=== PATIENT | male | born 1995 | race Asian ===

== ENCOUNTER 2017-05-29 17:21 | Emergency (ER) ==
[~2017-05-29] VITALS: Ht 180.3 cm; Wt 91.1 kg
[2017-05-29 17:38] VITALS: BP 118/56; PULSE 128; TEMP 37.8; O2SAT 94; Ht 180.3 cm; Wt 91.1 kg
== END 2017-05-29 18:54 | disposition left against medical advice (07) ==
LOC: C.EDB 17:22
DX: R50.9 Fever, unspecified (principal)

== ENCOUNTER 2017-06-12 09:50 | Emergency (ER) | payer OTHER ==
[~2017-06-12] VITALS: Ht 180.3 cm; Wt 88.3 kg
[2017-06-12 09:54] VITALS: TEMP 36.5; Ht 180.3 cm; Wt 88.3 kg
[2017-06-12] MEDS ORDERED: ACETAMINOPHEN 500 MG TAB PO STA (10:51)
[2017-06-12] MEDS ORDERED: MoRPHine SULFATE 4 MG/ML 1 ML CARP\\VIAL IV STA (10:51)
[2017-06-12] MEDS ORDERED: KETOROLAC TROMETHAMINE 30 MG/ML VIAL IV STA (10:51)
[2017-06-12] MEDS ORDERED: ONDANSETRON INJ 2 MG/ML 2 ML VIAL IV STA (10:51)
[2017-06-12] MEDS ORDERED: SODIUM CHLORIDE 0.9% 1000ML 1,000 ML IV STA (10:51)
[2017-06-12 10:53] LABS: HEMATOCRIT 48.7 % (42-52); MEAN CORPUSCULAR HEMOGLOBIN 30.5 pg (25-34); MEAN CORPUSCULAR HGB CONC 35.9 g/dl (32-36); MEAN PLATELET VOLUME 9.8 fL (7.4-10.4); PLATELET COUNT 315 K/uL (130-400); RED BLOOD COUNT 5.73 M/uL (4.7-6.1)
[2017-06-12] MEDS ORDERED: [UNRECOGNIZED DRUG - REMARK] PO (10:56)
--- NOTE | 2017-06-12 11:05 | EMERGENCY ROOM VISIT NOTE ---
History Report prepared by Carl: Sukhi Ball Under the Supervision of: Dr. Anmol Navas M.D. First contact with patient: 10:15 Chief Complaint: FLANK PAIN Stated Complaint: RT SIDE PAIN History of Present Illness The patient is a 22 year old male with a past medical history of hyperthyroidism and takes methimazole who presents to the ED with a cc of waxing and waning sharp right flank pain beginning this morning. Positive nausea. Negative history of surgery or kidney stones, vomiting, recent traumas, penis pain, scrotum pain, testicular pain, hematuria, burning with urination, alcohol use, tobacco use, or drug use. He had a normal BM yesterday and feels like he is building up gas. Source of History: patient Onset: this morning Position: other (right flank) Quality: sharp Timing: waxes/wanes Associated Symptoms: + nausea, No vomiting, No urinary symptoms Review of Systems See HPI for pertinent positives and negatives. A total of ten systems were reviewed and were otherwise negative. Past Medical & Surgical Medical Problems: (1) Hyperthyroidism Social History Smoking Status: Never Smoker Marital Status: single Housing Status: lives with roommate Occupation Status: [employer] student Current/Historical Medications Scheduled Ondasetron Odt (Zofran Odt), 4 MG SL Q6H Tamsulosin Hcl (Flomax), 0.4 MG PO Before bed [Hypothyroid Drug], 5 MG PO DAILY Scheduled PRN Tramadol (Ultram), 50 MG PO Q4H PRN for Pain Allergies Coded Allergies: POLLEN (Unverified Allergy, Mild, SHORTNESS OF BREATH, 06/12/17) Physical Exam Vital Signs Date Time Temp Pulse Resp B/P (MAP) Pulse Ox O2 Delivery O2 Flow Rate FiO2 06/12/17 13:30 74 16 137/84 95 Room Air 06/12/17 12:05 81 16 137/78 96 Room Air 06/12/17 11:07 65 17 149/82 96 Room Air 06/12/17 09:54 36.5 83 18 150/79 96 Room Air Physical Exam GENERAL: Awake, alert, uncomfortable-appearing, in pain HENT: Normocephalic, atraumatic. EYES: Normal conjunctiva. Sclera non-icteric. NECK: Supple. No nuchal rigidity. FROM. RESPIRATORY: CTAB, no rhonchi, wheezing, crackles CARDIAC: RRR, no MRG ABDOMEN: No RLQ TTP. Soft, NTND, BS+ MSK: Right flank pain, no true CVA TTP. Negative obturator and psoas. No chest wall TTP, no LE edema : Uncircumcised, no testicular, scrotal, or penile swelling. No TTP NEURO: GCS 15, CN 2-12 intact, moves all 4s on command SKIN: No rash or jaundice noted. Medical Decision & Procedures ER Provider Diagnostic Interpretation: Radiology results as stated below per my review and radiologist interpretation: EXAMINATION: RENAL ULTRASOUND CLINICAL HISTORY: R flank pain COMPARISON STUDY: None FINDINGS: The right kidney measures 11.8 cm. The left kidney measures 12.3 cm. There is no evidence of hydronephrosis. There are no renal masses. The bladder was empty at the time of scanning. Neither ureteral jet could be demonstrated. There is increased hepatic echogenicity, nonspecific finding most often seen in hepatic steatosis. IMPRESSION : 1. No renal masses identified. No evidence of hydronephrosis 2. Suspected hepatic steatosis Electronically signed by: Josué Lyons M.D. 06/12/2017 11:59 AM Dictated Date/Time: 06/12/2017 11:58 AM Laboratory Results 06/12/17 10:25 06/12/17 10:25 Test 06/12/17 10:25 06/12/17 11:00 Red Blood Count 5.73 M/uL (4.7-6.1) Mean Corpuscular Volume 85.0 fL (80-100) Mean Corpuscular Hemoglobin 30.5 pg (25-34) Mean Corpuscular Hemoglobin Concent 35.9 g/dl (32-36) RDW Standard Deviation 38.8 fL (36.4-46.3) RDW Coefficient of Variation 12.6 % (11.5-14.5) Mean Platelet Volume 9.8 fL (7.4-10.4) Anion Gap 6.0 mmol/L (3-11) Est Creatinine Clear Calc Drug Dose 136.7 ml/min Estimated GFR () 139.1 Estimated GFR (Non- 120.0 BUN/Creatinine Ratio 16.2 (10-20) Calcium Level 9.9 mg/dl (8.5-10.1) Total Bilirubin 0.7 mg/dl (0.2-1) Direct Bilirubin 0.2 mg/dl (0-0.2) Aspartate Amino Transf (AST/SGOT) 25 U/L (15-37) Alanine Aminotransferase (ALT/SGPT) 65 U/L (12-78) Alkaline Phosphatase 103 U/L (45-117) Total Protein 8.5 gm/dl (6.4-8.2) Albumin 4.6 gm/dl (3.4-5.0) Lipase 84 U/L (73-393) Urine Color DK YELLOW Urine Appearance CLEAR (CLEAR) Urine pH 7.5 (4.5-7.5) Urine Specific [place] 1.027 (1.000-1.030) Urine Protein NEG (NEG) Urine Glucose (UA) NEG (NEG) Urine Ketones NEG (NEG) Urine Occult Blood 2+ (NEG) Urine Nitrite NEG (NEG) Urine Bilirubin NEG (NEG) Urine Urobilinogen NEG (NEG) Urine Leukocyte Esterase NEG (NEG) Urine WBC (Auto) 1-5 /hpf (0-5) Urine RBC (Auto) >30 /hpf (0-4) Urine Hyaline Casts (Auto) 1-5 /lpf (0-5) Urine Epithelial Cells (Auto) 5-10 /lpf (0-5) Urine Bacteria (Auto) NEG (NEG) Laboratory results reviewed by me Medications Administered Medications (Trade) Dose Ordered Sig/Chris Route Start Time Stop Time Status Last Admin Dose Admin Ketorolac Tromethamine (Toradol Inj) 30 mg NOW STAT IV 06/12/17 10:51 06/12/17 10:52 DC 06/12/17 11:03 30 MG Morphine Sulfate (MoRPHine SULFATE INJ) 4 mg NOW STAT IV 06/12/17 10:51 06/12/17 10:52 DC 06/12/17 11:04 4 MG Acetaminophen (Tylenol Tab) 1,000 mg NOW STAT PO 06/12/17 10:51 06/12/17 10:52 DC 06/12/17 11:01 1,000 MG Ondansetron HCl (Zofran Inj) 4 mg NOW STAT IV 06/12/17 10:51 06/12/17 10:52 DC 06/12/17 11:02 4 MG Sodium Chloride 1,000 ml @ 999 mls/hr Q1H1M STAT IV 06/12/17 10:51 06/12/17 11:51 DC 06/12/17 11:00 999 MLS/HR Acetaminophen/ Hydrocodone Bitart (Peggs 10/325 Tab) 1 tab ONE STAT PO 06/12/17 12:58 06/12/17 12:59 DC 06/12/17 13:29 1 TAB Ondansetron HCl (Zofran Odt) 4 mg ONE STAT PO 06/12/17 13:10 06/12/17 13:11 DC 06/12/17 13:29 4 MG ED Course 1032: The patient was evaluated in room C8. A complete history and physical exam was performed. 1210: I reevaluated the patient, and he is feeling better. I discussed the possibility of early onset appendicitis. 1305: I reevaluated the patient, and he still had some pain, but it was tolerable . Discussed results and discharge instructions: He verbalized understanding and agreement. The patient is ready for discharge. Medical Decision The patient is a 22 year old male with a past medical history of hyperthyroidism and takes methimazole who presents to the ED with a cc of waxing and waning sharp right flank pain beginning this morning. Positive nausea. Negative history of surgery or kidney stones, vomiting, recent traumas, penis pain, scrotum pain, testicular pain, hematuria, burning with urination, alcohol use, tobacco use, or drug use. Differential diagnosis: Etiologies such as renal colic, appendicitis, diverticulitis, mesenteric ischemia, aortic pathology, infections, inflammatory bowel disease, PUD, biliary pathology, UTI, as well as others were entertained. Patient was seen and evaluated at the bedside. Patient was uncomfortable. Patient had no right lower quadrant pain and had a negative obturator's and psoas. Patient had blood work as well as an ultrasound and urine were sent. Patient's pain did improve and was more tolerable. Patient had had recent bowel movement denied any gross hematuria or blood in stool. Patient had no prior history of abdominal surgeries. Patient was given by mouth pain medications. Patient did have occult blood and rbc's in his urine. Patient had an ultrasound did not show anything hydronephrosis. Patient had normal kidney function. Patient's white count was normal. I spoke with the patient stated that while in ultrasound will not be definitive for locating a kidney stone given his symptoms and +blood in UA that this was possible. He was told this could be early onset of symptoms represent appendicitis however he has no right lower quadrant pain and does not have a positive obturator psoas sign. Furthermore, WBC is WNL. Patient was told that if his symptoms don't improve in the next 24-48 hours or develops any fever or chills or persistent vomiting to return for further evaluation. Patient was given d/c, return precautions. Patient safely discharged home. Medication Reconcilliation Current Medication List: was personally reviewed by me Blood Pressure Screening Patient's blood pressure: Elevated blood pressure Blood pressure disposition: Elevated BP felt to be situational Impression Primary Impression: Right flank pain Additional Impression: Kidney stone Scribe Attestation The scribe's documentation has been prepared under my direction and personally reviewed by me in its entirety. I confirm that the note above accurately reflects all work, treatment, procedures, and medical decision making performed by me. Departure Information Dispostion Home / Self-Care Prescriptions Tamsulosin Hcl (FLOMAX) 0.4 Mg Cap 0.4 MG PO Before bed for kidney stone for 30 Days, #30 CAP Prov: Anmol Navas M.D. 06/12/17 Ondasetron Odt (ZOFRAN ODT) 4 Mg Tab 4 MG SL Q6H for Nausea, #6 TAB Prov: Anmol Navas M.D. 06/12/17 Tramadol (Ultram) 50 Mg Tab 50 MG PO Q4H Y for Pain, #20 TAB Prov: Anmol Navas M.D. 06/12/17 Referrals No Doctor, Assigned (PCP) Abdirahman Quintanilla MD Forms HOME CARE DOCUMENTATION FORM, IMPORTANT VISIT INFORMATION Patient Instructions Kidney Stone Urine, Kidney Stones - [facility], Kidney Stones Expectant Therapy, [facility] Additional Instructions Please return to the emergency department if you have worsening or recurrent symptoms not amenable to at-home treatment. Please call for a follow-up appointment with her primary care physician. Please take your medications as prescribed. If you have other concerns and/or complaints please feel free to also call your primary care physician's office or return the ED for further evaluation, management, and treatment. You were found to have an elevated blood pressure today (>120 sytolic or >90 diastolic). Per medicare guidelines, you need to follow up with this blood pressure screening with your Primary Care Physician (PCP). For a new PCP call [phone]. You received narcotic or benzodiazepene medication while in the emergency room today. This is an addictive medication that may cause drowziness as well as constipation. Do not drive, operate heavy machinery, or drink alcohol under the influence of this medication. Take 600 mg Ibuprofen every 6 hours with food for pain for next two consecutive days. Please also take 1000mg of tylenol every 6 hours for pain. Take tramadol for breakthrough pain. This medicine is not a narcotic but may make your drowsy so please do not operative heavy machinery or drive until you see how this medication may affect you. Culture results are usually available in approx 48 hours You have been examined and treated today on an emergency basis only. This is not a substitute for, or an effort to provide, complete comprehensive medical care. It is impossible to recognize and treat all injuries or illnesses in a single emergency department visit. It is therefore important that you follow up closely with [facility]. Call as soon as possible for an appointment. Thank you for your time and consideration. I look forward to speaking with you again soon. Please don't hesitate to call us if you have any questions. School Instructions Return To School: 1 day Problem Qualifiers
[2017-06-12 11:11] LABS: BUN/CREATININE RATIO 16.2 (10-20); CALCIUM 9.9 mg/dl (8.5-10.1); CREATININE 0.91 mg/dl (0.60-1.40); POTASSIUM 3.8 mmol/L (3.5-5.1)
[2017-06-12 11:31] LABS: URINE APPEARANCE CLEAR (CLEAR); URINE BILIRUBIN NEG (NEG); URINE COLOR DK YELLOW; URINE NITRITE NEG (NEG); URINE PH 7.5 (4.5-7.5); URINE SPECIFIC GRAVITY 1.027 (1.000-1.030); UROBILINOGEN NEG (NEG); ZZUR CULT IF INDIC CLEAN CATCH NO
[2017-06-12 11:42] LABS: MANUAL MICROSCOPIC REQUIRED? NO; REVIEW REQ? NO; SULFASALICYLIC ACID NEG (NEG)
--- NOTE | 2017-06-12 12:01 | DIAGNOSTIC IMAGING REPORT ---
EXAMINATION: RENAL ULTRASOUND CLINICAL HISTORY: R flank pain COMPARISON STUDY: None FINDINGS: The right kidney measures 11.8 cm. The left kidney measures 12.3 cm. There is no evidence of hydronephrosis. There are no renal masses. The bladder was empty at the time of scanning. Neither ureteral jet could be demonstrated. There is increased hepatic echogenicity, nonspecific finding most often seen in hepatic steatosis. IMPRESSION : 1. No renal masses identified. No evidence of hydronephrosis 2. Suspected hepatic steatosis Electronically signed by: Josué Lyons M.D. 06/12/2017 11:59 AM Dictated Date/Time: 06/12/2017 11:58 AM
[2017-06-12] MEDS ORDERED: TRAM-10 PO (12:54)
[2017-06-12] MEDS ORDERED: ONDA4TAB10 SL (12:54)
[2017-06-12] MEDS ORDERED: TAMS0.4C38 PO (12:58)
[2017-06-12] MEDS ORDERED: HYDROCODONE/ACETAMI 10/325 TAB PO STA (12:58)
[2017-06-12] MEDS ORDERED: ONDANSETRON 4MG OD TAB PO STA (13:10)
[2017-06-12 13:30] VITALS: BP 137/84; PULSE 74; O2SAT 95
== END 2017-06-12 13:46 | disposition home or self-care (01) ==
LOC: C.EDB 09:52 → C.EDC 13:46
DX: R10.9 Unspecified abdominal pain (principal); N20.0 Calculus of kidney; E03.9 Hypothyroidism, unspecified

== ENCOUNTER → 2017-07-20 | Outpatient (CLI) | payer OTHER ==
[~2017-07-20] MED LIST: GADAVIST IV PRN; ONDA4TAB10 SL; TRAM-10 PO; [UNRECOGNIZED DRUG - REMARK] PO
--- NOTE | 2017-07-20 13:19 | DIAGNOSTIC IMAGING REPORT ---
ADDENDUM Addendum: Note is made of exophthalmos, a finding that is likely related to Graves' disease. No additional orbital abnormalities are identified. The extraocular muscles are normal. Electronically signed by: Tim Almendarez M.D. 07/20/2017 4:08 PM Dictated Date/Time: 07/20/2017 4:06 PM ORIGINAL REPORT MRI OF THE ORBITS WITH AND WITHOUT CONTRAST CLINICAL HISTORY: Graves' disease. COMPARISON STUDY: No previous studies for comparison. TECHNIQUE: Utilizing a 1.5 [place] magnet and dedicated coil, multiplanar, multiecho imaging of the orbits was performed pre and postcontrast administration. Injection of 9 cc of Gadavist IV was uneventful. FINDINGS: The globes are intact. Extraocular muscles are within normal limits and symmetric in appearance. There is no evidence of thyroid associated orbitopathy. No orbital masses are present. Lacrimal glands are normal. The superior ophthalmic veins are not dilated. Visualized portions of the brain parenchyma are normal. The visualized calvarium has normal signal characteristics. There is no significant sinus disease. IMPRESSION: Normal MRI of the orbits. No evidence of thyroid-associated orbitopathy. Electronically signed by: Tim Almendarez M.D. 07/20/2017 1:17 PM Dictated Date/Time: 07/20/2017 1:06 PM
== END | disposition home or self-care (01) ==
LOC: C.MRI 10:29
PROVIDERS: ATTEND Internal Medicine Endocrinology, Diabetes & Metabolism
DX: E05.00 Thyrotoxicosis with diffuse goiter without thyrotoxic crisis or storm (principal); H05.20 Unspecified exophthalmos